=== PATIENT | female | born 1960 | race Caucasian/White ===

== ENCOUNTER 2017-09-13 17:25 | Emergency (ER) | payer OTHER ==
[~2017-09-13] VITALS: Ht 170.2 cm; Wt 82.6 kg
[2017-09-13 17:51] VITALS: Ht 170.2 cm; Wt 82.6 kg
[2017-09-13 20:20] VITALS: BP 122/78
== END 2017-09-13 20:20 | disposition home or self-care (01) ==
LOC: ED 17:25
DX: N39.0 Urinary tract infection, site not specified (principal); E03.8 Other specified hypothyroidism

== ENCOUNTER 2017-09-18 16:42 | Emergency (ER) | payer OTHER ==
[~2017-09-18] VITALS: Ht 167.6 cm; Wt 82.6 kg
[2017-09-18 17:02] VITALS: Ht 167.6 cm; Wt 82.6 kg
[2017-09-18 18:52] VITALS: BP 118/74
== END 2017-09-18 18:52 | disposition home or self-care (01) ==
LOC: ED 16:42
DX: N39.0 Urinary tract infection, site not specified (principal); E03.9 Hypothyroidism, unspecified
CPT/HCPCS: 87491; 87591

== ENCOUNTER 2017-10-15 13:32 | Emergency (ER) | payer OTHER ==
[~2017-10-15] VITALS: Ht 167.6 cm; Wt 81.6 kg
[2017-10-15 13:59] VITALS: Ht 167.6 cm; Wt 81.6 kg
[2017-10-15 14:39] LABS: UA SPECIFIC GRAVITY 1.025 (1.005-1.035); microscopic required? YES; urine erythrocyte 2+ (NEGATIVE)
[2017-10-15 16:39] VITALS: BP 125/78
== END 2017-10-15 16:39 | disposition home or self-care (01) ==
LOC: ED 13:32
PROVIDERS: Emergency Medicine
DX: N20.1 Calculus of ureter (principal); R30.0 Dysuria; R50.9 Fever, unspecified
CPT/HCPCS: J1885